=== PATIENT | female | born 1950 | race Caucasian/White ===

== ENCOUNTER → 2017-05-23 | Outpatient (CLI) | payer MEDICARE, OTHER | END | disposition home or self-care (01) | LOC: GMAL 14:44 | PROVIDERS: ATTEND Family Medicine | DX: E55.9 Vitamin D deficiency, unspecified (principal) ==

== ENCOUNTER → 2017-09-14 | Outpatient (CLI) | payer MEDICARE, OTHER | END | disposition home or self-care (01) | LOC: GMAM 12:41 | PROVIDERS: ATTEND Family Medicine | DX: D51.3 Other dietary vitamin B12 deficiency anemia (principal); R53.83 Other fatigue; E55.9 Vitamin D deficiency, unspecified ==

== ENCOUNTER → 2018-03-20 | Outpatient (CLI) | payer MEDICARE, OTHER | LOC: GMAL 14:40 | PROVIDERS: ATTEND Family Medicine | DX: S20.462D Insect bite (nonvenomous) of left back wall of thorax, subsequent encounter (principal) ==

== ENCOUNTER → 2018-12-05 | Outpatient (CLI) | payer MEDICARE, OTHER ==
--- NOTE | 2018-12-05 13:02 | RAD ---
EXAM DESCRIPTION: Shoulder,Left 2 or More Views CLINICAL HISTORY: PAIN IN LEFT SHOULDER COMPARISON: None FINDINGS: 3 views of left shoulder. 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 Acute fractures are present. Sclerosis and subchondral cystic changes seen along the anterior inferior aspect of the glenoid fossa indicating advanced chondrosis/early osteoarthritis of the glenohumeral joint. No shoulder dislocation is present. Visualized structures of the left hemithorax are unremarkable. Degenerative spondylosis of the cervical spine can contribute to left sided radiculopathy. IMPRESSION: No acute radiographic abnormality. Chronic findings described above. Electronically signed by: Odilon Hawley MD 12/05/2018 12:59 PM [employer]
--- NOTE | 2018-12-05 13:54 | RAD ---
EXAM DESCRIPTION: Wrist,Left 3 Views CLINICAL HISTORY: R22.9 COMPARISON: None FINDINGS: 3 views of the left wrist. No acute fracture, dislocation or aggressive bone lesion is demonstrated. Mild osteoarthritis at the first carpal metacarpal joint. Mild osteoarthritic hypertrophy of the distal radial styloid. The carpal alignment is normal. The soft tissues are unremarkable. Normal bone mineralization is present. IMPRESSION: No acute radiographic abnormality. Osteoarthritis of the first carpometacarpal joint. Electronically signed by: Odilon Hawley MD 12/05/2018 1:51 PM [facility]
== END ==
LOC: RAD 09:39
PROVIDERS: ATTEND Orthopaedic Surgery
DX: Z01.818 Encounter for other preprocedural examination (principal); M18.12 Unilateral primary osteoarthritis of first carpometacarpal joint, left hand; R22.9 Localized swelling, mass and lump, unspecified; M25.512 Pain in left shoulder

== ENCOUNTER 2018-12-18 05:43 | Day surgery (SDC) | payer MEDICARE, OTHER ==
--- NOTE | 2018-12-16 10:49 | HP ---
CHIEF COMPLAINT: Left hand numbness and left wrist pain. HISTORY OF PRESENT ILLNESS: Ms. Arellano is a 68-year-old female with a history of numbness in the hand, but is also having pain along the radial border of the wrist. She denies any trauma associated with this. She denies any radiation of the pain from the wrist. She says this has been refractory to conservative measures. Because of the refractory nature of it, she has requested operative intervention. After discussing the risks, benefits and alternatives to that, she has given informed consent for carpal tunnel release as well as injection in the first dorsal compartment. PAST SURGICAL HISTORY: 1. Total knee arthroplasty. 2. Rotator cuff repair. 3. Hysterectomy. 4. Cardiac ablation. 5. Lumbar fusion. MEDICATIONS: 1. Lisinopril. 2. Tramadol. 3. Gabapentin. 4. Flexeril. ALLERGIES: VIBRAMYCIN, ASPIRIN, ROCEPHIN, TORADOL, PENICILLIN. CODE STATUS: Full code. IMMUNIZATIONS: Up to date. FAMILY HISTORY: None pertinent to today's complaint. SOCIAL HISTORY: The patient does not drink, smoke or use any illicit drugs. REVIEW OF SYSTEMS: Negative except as indicated in the History of Present Illness. PHYSICAL EXAMINATION: VITAL SIGNS: Blood pressure 122/72. Pulse 89. Height 5'2". Weight 211 pounds. MENTAL STATUS: The patient is awake, alert, and is able to give a good history and participate in the physical. The patient is oriented to person, place and time. SKIN: Normal tone and turgor. MUSCULOSKELETAL: She is very tender over the first dorsal compartment. She has pain with resisted radial deviation and pain with forceful ulnar deviation. She has positive carpal compression test. She has positive Tinel's. She has full sheet rock taper helper strength. She has subjective numbness at the second, third and fourth digit. There is no significant thenar atrophy today. She maintains full range of motion in the shoulder, elbow, wrist and digits. ASSESSMENT: 1. Carpal tunnel syndrome. 2. De Quervain's. PLAN: The plan at this point is carpal tunnel release, but we are also going to plan injection in the first dorsal compartment. We have discussed the risks, benefits, and alternatives to that and the patient has given informed consent. #[id number] [facility]
[2018-12-18] MEDS ORDERED: LACTATED RINGERS 1,000 ML ONE (05:55)
[2018-12-18] MEDS ORDERED: BUPIVACAINE 0.25% INJ 30 ML VIAL INJ ONE (07:37)
[2018-12-18] MEDS ORDERED: VANCOMYCIN HCL INJ 1,000 MG VIAL IVPB ONE ×2 (07:38→08:04)
[2018-12-18] MEDS ORDERED: LIDOCAINE 1% 10 ML VIAL INJ ONE ×2 (07:38→10:00)
[2018-12-18] MEDS ORDERED: SODIUM CHLORIDE 0.9% 250ML 250 ML ONE (08:04)
[2018-12-18] MEDS ORDERED: methylPREDNISolone ACETATE 80 MG/ML VIAL ONE (08:14)
[2018-12-18] MEDS ORDERED: MIDAZOLAM INJ 2 MG/2 ML VIAL ONE (08:14)
[2018-12-18] MEDS ORDERED: fentaNYL CITRATE INJ 50 MCG/ML AMP ONE (08:14)
[2018-12-18] MEDS ORDERED: diphenhydrAMINE HCL 50 MG/ML VIAL IV ONE (10:00)
[2018-12-18] MEDS ORDERED: PROPOFOL 200 MG/20 ML VIAL IV ONE (10:00)
--- NOTE | 2018-12-18 11:04 | OP ---
DATE OF PROCEDURE: 12/18/18 PREOPERATIVE DIAGNOSIS: 1. Carpal tunnel syndrome. 2. De Quervain's. POSTOPERATIVE DIAGNOSIS: 1. Carpal tunnel syndrome. 2. De Quervain's. PROCEDURE: 1. Carpal tunnel release. 2. Injection of first dorsal compartment. SURGEON: Juanito Edwards MD. TAIL BOARD MAN: Moe Eagle CST, -Mirian. ANESTHESIA: Local with sedation. COMPLICATIONS: None. FINDINGS: 1. Thickening of the transverse carpal ligament. 2. Narrowing of the median nerve across the carpal tunnel. INDICATION: Ms. Arellano has a history of pain in the wrist as well as the first dorsal compartment and some associated numbness. Because of that, she has requested the aforementioned procedures. After discussing the risks, benefits and alternatives to that, the patient has given informed consent. PROCEDURE: The patient was brought to the Operating Room and placed in the supine position. Sedation was administered and local anesthetic was injected into the operative area under sterile conditions. After the injection of anesthetic, the arm was sterilely prepped and draped. A longitudinal incision was made directly overlying the transverse carpal ligament and blunt dissection was carried down to the ligament. The transverse carpal ligament was sharply transected along its length and a Revere elevator was used to ensure complete release of the ligament. Once release had been confirmed, the wound was thoroughly irrigated and the wound was closed with Nylon suture. The first dorsal compartment was identified and under sterile conditions, a combination of lidocaine and Depo-Medrol were injected directly into the first dorsal compartment. Sterile dressings were placed and the patient was taken to the Day Surgery Unit. POSTOPERATIVE PLAN: The patient has been encouraged to do range of motion of the digits and will followup with us in approximately two days. #[id number] [facility]
[2018-12-18 11:11] VITALS: BP 120/67; TEMP 97.5; O2SAT 97
== END 2018-12-18 09:55 | disposition home or self-care (01) ==
LOC: AMB 05:43
PROVIDERS: ATTEND Orthopaedic Surgery
DX: G56.02 Carpal tunnel syndrome, left upper limb (principal); M65.4 Radial styloid tenosynovitis [de Quervain]; I10 Essential (primary) hypertension; E66.9 Obesity, unspecified; J44.9 Chronic obstructive pulmonary disease, unspecified; Z87.891 Personal history of nicotine dependence; Z90.710 Acquired absence of both cervix and uterus; Z98.1 Arthrodesis status; Z96.659 Presence of unspecified artificial knee joint; Z88.6 Allergy status to analgesic agent; Z88.5 Allergy status to narcotic agent; Z88.0 Allergy status to penicillin; Z88.8 Allergy status to other drugs, medicaments and biological substances; Z79.899 Other long term (current) drug therapy
CPT/HCPCS: 01810; 20600; 64721; 80307; J1030; J1200; J1956; J2250; J3010; J3370; J3490; J7050; J7120

== ENCOUNTER → 2019-07-09 | Outpatient (CLI) | payer MEDICARE, OTHER ==
--- NOTE | 2019-07-10 19:05 | MAM ---
EXAM DESCRIPTION: 3D Screening BILATERAL : Digital Mammography. CLINICAL HISTORY: 69 years Female Screening . No complaints. No personal history of breast cancer. Mother with breast cancer at age 50. Remote family history of breast cancer. Menarche age 12. Childbirth. Postmenopausal 25+ years. No HRT. Lifetime risk of developing breast cancer (Tyrer-Cuzick model)(%): 12.7. COMPARISON: Bilateral 2-D digital screening mammography 05/01/2013. No prior reports available. TECHNIQUE: Bilateral CC and MLO projection full-field images, digital tomosynthesis mammographic technique. Bilateral digital 2-D full-field MLO images. CAD not available for tomosynthesis or 2-D images. FINDINGS: The breast parenchymal density pattern is: Scattered areas of fibroglandular density. No skin thickening or nipple retraction. Bilateral axillary lymph nodes. Bilateral solitary microcalcifications. Bilateral vascular calcifications. Skin markers indicating skin moles. No new focal, stellate mass or density, focal asymmetry , and no suspicious microcalcifications bilaterally. Stable mammograms compared to prior study. Taking into account, differences in mammographic technique. IMPRESSION: Benign exam. BIRAD CATEGORY: 2 BENIGN FINDINGS. RECOMMENDATIONS: FOLLOW UP: Routine digital bilateral mammographic screening, one year interval from June 2019. Written communication explaining the IMPRESSION and follow-up, will be mailed to the patient and referring health care provider. According to the [employer], yearly mammograms are recommended starting at age 40 and continuing as long as a woman is in good health. Any breast change noted on a breast self-exam should be reported promptly to the patient's healthcare provider. Breast MRI is recommended for women with an approximately 20-25% or greater lifetime risk of breast cancer, including women with a strong family history of breast or ovarian cancer and women who have been treated for Hodgkin's disease. A negative mammographic report should not delay tissue diagnosis in patients with significant clinical history or physical findings. Extremely dense breast tissue limits the sensitivity of digital mammography. Electronically signed by: Moe Castillo MD 07/10/2019 7:03 PM CDT
== END ==
LOC: MAMMO 13:00
PROVIDERS: ATTEND Family Medicine
DX: Z12.31 Encounter for screening mammogram for malignant neoplasm of breast (principal)

== ENCOUNTER → 2020-07-28 | Outpatient (CLI) | payer MEDICARE | LOC: GMAL 10:51 | PROVIDERS: ATTEND Family Medicine | DX: D51.3 Other dietary vitamin B12 deficiency anemia (principal); R53.83 Other fatigue; E11.9 Type 2 diabetes mellitus without complications; Z79.899 Other long term (current) drug therapy; E78.1 Pure hyperglyceridemia; R06.02 Shortness of breath ==

== ENCOUNTER → 2020-10-19 | Outpatient (CLI) | payer MEDICARE, OTHER | LOC: GMAL 15:38 | PROVIDERS: ATTEND Family Medicine | DX: N30.00 Acute cystitis without hematuria (principal) ==